=== PATIENT | female | born 1940 | race African-American/Black ===

== ENCOUNTER 2017-05-17 12:16 | Emergency (ER) | payer OTHER ==
[~2017-05-17] VITALS: Ht 162.6 cm; Wt 62.0 kg
[~2017-05-17 12:16] MED LIST: KEPP500 PO
[2017-05-17] MEDS ORDERED: PHENOBARBITAL 100MG TABLET PO STA ×2 (13:11→13:31)
[2017-05-17 13:34] LABS: BASOPHILS % 0.8 % (0.0-2.0); EOSINOPHILS % 2.3 % (0.0-5.0); HEMATOCRIT. 39.8 % (36.0-48.0); HEMOGLOBIN. 13.3 g/dL (12.0-16.0); LYMPHOCYTES % 28.3 % (20.0-50.0); MEAN CORPUSCULAR VOLUME 92.7 fL (81.0-99.0); MEAN PLATELET VOLUME 7.6 fl (7.4-10.4); MONOCYTES % 7.1 % (2.0-8.0); NEUTROPHILS % 61.5 % (40.0-76.0); PLATELET 295 x1000/uL (130-400); RED BLOOD CELL COUNT 4.29 mill/uL (4.2-5.4); RED CELL DISTRIBUTION WIDTH 14.9 % (11.6-14.6)
[2017-05-17] MEDS ORDERED: PHENOBARBITAL 30 MG TABLET PO NR (13:45)
[2017-05-17 13:50] LABS: CARBON DIOXIDE 27 mEq/L (21-32); CHLORIDE 109 mEq/L (98-107); ETHANOL BLOOD < 10 mg/dL; PHENOBARBITAL 36.2 ug/mL (15.0-40.0)
[2017-05-17 15:00] VITALS: BP 138/78
[2017-05-17 16:08] LABS: CLARITY URINE CLEAR (CLEAR); COLOR URINE YELLOW (YELLOW); GLUCOSE URINE NEGATIVE (NEGATIVE); KETONES URINE TRACE (NEGATIVE); LEUKOCYTE ESTERASE URINE TRACE (NEGATIVE); NITRITE URINE NEGATIVE (NEGATIVE); OCCULT BLOOD URINE 2+ (NEGATIVE); PH URINE 6.5 (4.5-8.0); PROTEIN URINE NEGATIVE (NEGATIVE); SPECIFIC GRAVITY URINE 1.011 (1.005-1.030); UROBILINOGEN URINE 0.2 E.U./dL (0.2-1.0)
[2017-05-17 16:22] LABS: *AMPHETAMINES SCREEN URINE NEGATIVE (NEGATIVE); *BARBITURATES SCREEN URINE PRESUMTIVE POSITIVE (NEGATIVE); *BENZODIAZEPINES SCREEN URINE NEGATIVE (NEGATIVE); *COCAINE SCREEN URINE NEGATIVE (NEGATIVE); CANNABINOID URINE SCREEN PRESUMTIVE POSITIVE (NEGATIVE); METHADONE URINE SCREEN NEGATIVE (NEGATIVE); OPIATES URINE SCREEN NEGATIVE (NEGATIVE); PHENCYCLIDINE URINE SCREEN NEGATIVE (NEGATIVE)
== END 2017-05-17 16:40 | disposition left against medical advice (07) ==
LOC: ER 12:30
DX: R56.9 Unspecified convulsions (principal); N39.0 Urinary tract infection, site not specified; F12.10 Cannabis abuse, uncomplicated; Z91.14 Patient's other noncompliance with medication regimen; Z88.8 Allergy status to other drugs, medicaments and biological substances
CPT/HCPCS: 36415; 80053; 80184; 80305; 81001; 85025; 99284; G0482

== ENCOUNTER 2018-12-01 12:58 | Emergency (ER) | payer OTHER ==
[~2018-12-01] VITALS: Ht 162.6 cm; Wt 65.0 kg
[2018-12-01] MEDS ORDERED: MORPHINE SULFATE 4 MG/ML CPJ (NOT FOR IM USE) IV STA (14:51)
[2018-12-01 15:35] LABS: CLARITY URINE CLEAR (CLEAR); COLOR URINE YELLOW (YELLOW); KETONES URINE NEGATIVE (NEGATIVE); LEUKOCYTE ESTERASE URINE NEGATIVE (NEGATIVE); NITRITE URINE NEGATIVE (NEGATIVE); OCCULT BLOOD URINE 1+ (NEGATIVE); PROTEIN URINE NEGATIVE (NEGATIVE); SPECIFIC GRAVITY URINE 1.009 (1.005-1.030); UROBILINOGEN URINE 0.2 E.U./dL (0.2-1.0)
[2018-12-01 15:40] LABS: CHLORIDE 109 mEq/L (98-107); EOSINOPHILS % 3.6 % (0.0-5.0); HEMATOCRIT. 35.8 % (36.0-48.0); LYMPHOCYTES % 30.2 % (20.0-50.0); MEAN CORPUSCULAR HEMOGLOBIN 31.3 pg (28.0-32.0); MEAN CORPUSCULAR VOLUME 93.5 fL (81.0-99.0); MEAN PLATELET VOLUME 7.2 fl (7.4-10.4); MONOCYTES % 9.9 % (2.0-8.0); NEUTROPHILS % 55.3 % (40.0-76.0); PLATELET 419 x1000/uL (130-400); RED BLOOD CELL COUNT 3.83 mill/uL (4.2-5.4); RED CELL DISTRIBUTION WIDTH 15.6 % (11.6-14.6)
[2018-12-01] MEDS ORDERED: ACETAMINOPHEN 500MG TABLET PO ONE (17:00)
[2018-12-01 17:40] VITALS: BP 127/67
== END 2018-12-01 18:14 | disposition home or self-care (01) ==
LOC: ER 12:58
DX: K59.00 Constipation, unspecified (principal); R53.1 Weakness; Z88.8 Allergy status to other drugs, medicaments and biological substances; Z88.2 Allergy status to sulfonamides
CPT/HCPCS: 36415; 71045; 74176; 83605; 93005; 99284

== ENCOUNTER 2021-12-17 11:49 | Inpatient (IN) | payer MEDICARE, OTHER, MEDICAID ==
[~2021-12-17] VITALS: Ht 162.6 cm; Wt 50.5 kg
[~2021-12-17 11:49] MED LIST changes: +ARIP2TAB3 MT; +ASPI-1497 PO; +CITA10SO PO; -KEPP500 PO; +ZONI100C45 MT
[2021-12-17] MEDS ORDERED: SODIUM CHLORIDE 0.9% 1,000 ML IV ONE (12:15)
[2021-12-17 12:36] LABS: BASOPHILS % 0.8 % (0.0-2.0); EOSINOPHILS % 1.5 % (0.0-5.0); HEMATOCRIT. 38.8 % (36.0-48.0); HEMOGLOBIN. 12.8 g/dL (12.0-16.0); LYMPHOCYTES % 41.1 % (20.0-50.0); MEAN CORPUSCULAR HEMOGLOBIN 30.8 pg (28.0-32.0); MEAN CORPUSCULAR VOLUME 93.2 fL (81.0-99.0); MEAN PLATELET VOLUME 7.8 fl (7.4-10.4); MONOCYTES % 7.6 % (2.0-8.0); PLATELET 268 x1000/uL (130-400); RED BLOOD CELL COUNT 4.16 mill/uL (4.2-5.4); RED CELL DISTRIBUTION WIDTH 16.2 % (11.6-14.6)
[2021-12-17 12:42] LABS: CHLORIDE 106 mEq/L (98-107)
[2021-12-17 12:52] LABS: VALPROIC ACID <3.0 ug/mL ug/mL (50-100)
[2021-12-17 12:54] LABS: PHENOBARBITAL 26.2 ug/mL (15.0-40.0)
[2021-12-17 12:58] LABS: CARBAMAZEPINE < 0.5 ug/mL (4-12)
[2021-12-17 13:36] LABS: CLARITY URINE CLEAR (CLEAR); COLOR URINE YELLOW (YELLOW); KETONES URINE NEGATIVE (NEGATIVE); LEUKOCYTE ESTERASE URINE NEGATIVE (NEGATIVE); NITRITE URINE NEGATIVE (NEGATIVE); OCCULT BLOOD URINE 2+ (NEGATIVE); PH URINE 7.5 (4.5-8.0); PROTEIN URINE NEGATIVE (NEGATIVE); SPECIFIC GRAVITY URINE 1.007 (1.005-1.030); UROBILINOGEN URINE 0.2 E.U./dL (0.2-1.0)
[2021-12-17] MEDS ORDERED: ASPIRIN 81MG TABLET PO ONE (14:15)
[2021-12-17] MEDS ORDERED: ZONISAMIDE 100MG CAPSULE PO ONE (14:30)
[2021-12-17] MEDS ORDERED: IPRATROPIUM/ALBUTEROL 0.5-3(2.5)MG/3ML NEB HHN PRN (17:00)
[2021-12-17] MEDS ORDERED: ACETAMINOPHEN 325MG TABLET PO PRN (17:00)
[2021-12-17] MEDS ORDERED: CLONIDINE 0.1MG TABLET PO PRN (17:00)
[2021-12-17] MEDS ORDERED: DIPHENHYDRAMINE 50MG/ML VIAL IV PRN (17:00)
[2021-12-17] MEDS ORDERED: ONDANSETRON HCL 4MG/2ML INJ IV PRN (17:00)
[2021-12-17 22:00] VITALS: BP 160/86
[2021-12-18] VITALS: BP 155/79
[2021-12-18] MEDS ORDERED: PHEN97.22 MT (01:43)
[2021-12-18 04:00] VITALS: BP 141/80
[2021-12-18 08:00] VITALS: BP 129/80
[2021-12-18] MEDS ORDERED: ZONISAMIDE 100MG CAPSULE PO SCH (09:00)
[2021-12-18 09:09] LABS: EOSINOPHILS % 1.6 % (0.0-5.0); HEMATOCRIT. 39.3 % (36.0-48.0); HEMOGLOBIN. 13.2 g/dL (12.0-16.0); LYMPHOCYTES % 35.2 % (20.0-50.0); MEAN CORPUSCULAR HEMOGLOBIN 31.1 pg (28.0-32.0); MEAN CORPUSCULAR VOLUME 92.4 fL (81.0-99.0); MEAN PLATELET VOLUME 8.8 fl (7.4-10.4); NEUTROPHILS % 52.2 % (40.0-76.0); PLATELET 274 x1000/uL (130-400); RED BLOOD CELL COUNT 4.25 mill/uL (4.2-5.4); RED CELL DISTRIBUTION WIDTH 15.7 % (11.6-14.6)
[2021-12-18 09:11] LABS: CHLORIDE 111 mEq/L (98-107)
[2021-12-18 12:00] VITALS: BP 146/71
[2021-12-18 16:00] VITALS: BP 141/70
[2021-12-18 20:00] VITALS: BP 137/88
[2021-12-18] MEDS ORDERED: PHENOBARBITAL 100MG TABLET PO SCH (21:00)
[2021-12-18] MEDS ORDERED: ARIPIPRAZOLE 2MG TABLET PO SCH (21:00)
[2021-12-18] MEDS: ASPIRIN 81MG EC TABLET PO SCH (21:53)
[2021-12-19] VITALS: BP 131/77
[2021-12-19 04:00] VITALS: BP 126/66
[2021-12-19 08:00] VITALS: BP 96/54
[2021-12-19] MEDS ORDERED: PHENOBARBITAL 100MG TABLET PO SCH (09:00)
[2021-12-19] MEDS: ASPIRIN 81MG EC TABLET PO SCH (10:46)
[2021-12-19 12:00] VITALS: BP 120/60
[2021-12-19 16:00] VITALS: BP 110/64
[2021-12-19] MEDS ORDERED: ZONISAMIDE 100MG CAPSULE PO SCH (17:00)
[2021-12-19 17:57] VITALS: BP 110/64
== END 2021-12-19 18:43 | disposition home health service (06) | DRG 101 ==
LOC: ER 11:49 → 8WST 14:59 → ENRESERV 19:02
PROVIDERS: ADMIT Internal Medicine; ATTEND Internal Medicine
DX: G40.919 Epilepsy, unspecified, intractable, without status epilepticus (principal); F03.90 Unspecified dementia, unspecified severity, without behavioral disturbance, psychotic disturbance, mood disturbance, and anxiety; F31.9 Bipolar disorder, unspecified; E78.00 Pure hypercholesterolemia, unspecified; Z79.899 Other long term (current) drug therapy; Z88.8 Allergy status to other drugs, medicaments and biological substances
CPT/HCPCS: 36415; 71045; 80053; 80156; 80165; 80184; 80185; 81003; 84484; 85025; 93005; 99285; J7030